=== PATIENT | female | born 1990 | race Asian ===

== ENCOUNTER 2016-10-11 19:31 | Emergency (ER) | payer OTHER ==
[~2016-10-11] VITALS: Ht 167.6 cm; Wt 51.3 kg
[2016-10-11 19:41] VITALS: BP_SYST 109
[2016-10-11 20:28] LABS: BASOPHILS % (AUTO) 0.3 % (0.0-2.0); EOSINOPHILS % (AUTO) 0.2 % (0.0-4.0); HEMATOCRIT 36.5 % (36-48); HEMOGLOBIN 12.2 g/dL (12.0-16.0); LYMPHOCYTES # (AUTO) 1.2 K/uL (1.0-5.5); LYMPHOCYTES % (AUTO) 12.9 % (20.5-51.5); MEAN CORPUSCULAR HEMOGLOBIN 30 pg (27-31); MEAN CORPUSCULAR HGB CONC 33 % (32-36); MEAN CORPUSCULAR VOLUME 89 fL (79.0-98.0); MONOCYTES # (AUTO) 0.8 K/uL (0.0-1.0); MONOCYTES % (AUTO) 7.9 % (1.7-9.3); NEUTROPHILS # (AUTO) 7.6 K/uL (1.8-7.7); NEUTROPHILS % (AUTO) 78.7 % (40.0-70.0); PLATELET COUNT (AUTO) 189 K/uL (130-430); RED BLOOD CELL COUNT(AUTO) 4.09 MIL/uL (4.2-6.2); WHITE BLOOD COUNT (AUTO) 9.6 K/uL (4.8-10.8)
[2016-10-11 20:31] LABS: CALCIUM 9.4 mg/dL (8.4-11.0); CREATININE 0.65 mg/dL (0.55-1.30); POTASSIUM 4.2 mmol/L (3.5-5.1)
[2016-10-11] MEDS ORDERED: NACL 0.9% 1,000 ML IV ONE (21:18)
[2016-10-11] MEDS ORDERED: cefTRIAXone 1 GM IVPB PREMIX 50 ML IV ONE ×2 (21:30→22:13)
[2016-10-11] MEDS ORDERED: KETOROLAC TROMETHAMINE 30 MG VIAL IVP ONE (21:30)
[2016-10-11 21:58] LABS: BILIRUBIN,URINE NEGATIVE (NEGATIVE); CLARITY/URINE CLEAR (CLEAR); COLOR,URINE YELLOW (YELLOW); GLUCOSE,URINE NEGATIVE (NEGATIVE); KETONES,URINE 2+ (NEGATIVE); LEUKOCYTE ESTERASE ,URINE NEGATIVE (NEGATIVE); NITRITE, URINE NEGATIVE (NEGATIVE); PROTEIN URINE NEGATIVE (NEGATIVE); UROBILINOGEN,URINE 0.2 (0.2-1.0)
[2016-10-11 22:00] LABS: BLOOD, URINE TRACE (NEGATIVE)
[2016-10-11 22:06] LABS: BACTERIA,URINE FEW /HPF (None Seen)
[2016-10-12 02:00] VITALS: BP_SYST 102
== END 2016-10-12 00:15 | disposition home or self-care (01) ==
LOC: SED 19:31
DX: N10 Acute pyelonephritis (principal)
CPT/HCPCS: 36415; 80048; 81000; 81025; 85025; 96365; 96375; 99284; J0696; J1885; J7030

== ENCOUNTER 2018-06-08 22:11 | Emergency (ER) | payer OTHER ==
[~2018-06-08] VITALS: Ht 170.2 cm; Wt 53.5 kg
[2018-06-08 22:27] VITALS: BP_SYST 94
--- NOTE | 2018-06-08 22:35 | NUR ---
Patient triaged and placed in waiting room. VSS and patient appears in no acute distress at this time. Accompanied by , awaiting available bed, and MD notified of need for MSE.
--- NOTE | 2018-06-08 22:51 | NUR ---
Placed in room 03 . Placed on school lunch monitor, blood pressure machine and pulse oximeter. To gown for exam. Side rails up. Report given to Augie LILLY.
--- NOTE | 2018-06-08 23:00 | NUR ---
Pt BIB to ED C/O acute L Flank pain, Pt states she is 12 weeks . Pt also states she was Dx with UTI by PMD almost finished entire course of PCN but not quite. Now pt is concerned infection might be coming back. No other injuries and or complaints noted. VSS no s/s of acute distress. Resting on gurney with rails up
--- NOTE | 2018-06-08 23:14 | NUR ---
Dr. Styles Bedside for Pt eval
[2018-06-08 23:34] VITALS: BP_SYST 94
--- NOTE | 2018-06-08 23:34 | NUR ---
Patient given written and verbal discharge instructions and verbalizes understanding. ER MD discussed with patient the results and treatment provided. Patient in stable condition. ID arm band removed. Rx of Clotrimazole given. Patient educated on pain management and to follow up with PMD. Pain Scale 0/10. Opportunity for questions provided and answered. Medication side effect fact sheet provided.
== END 2018-06-08 23:34 | disposition home or self-care (01) ==
LOC: SED 22:11
DX: O23.591 Infection of other part of genital tract in pregnancy, first trimester (principal); Z3A.12 12 weeks gestation of pregnancy
CPT/HCPCS: 81002; 81025; 99282